=== PATIENT | male | born 1980 ===

== ENCOUNTER 2020-08-28 16:02 | Emergency (ER) | payer MEDICAID ==
[2020-08-28 17:12] VITALS: BP 151/104
--- NOTE | 2020-08-28 17:12 | Emergency Department Report ---
ED Fall HPI - General Chief Complaint: Extremity Injury, Lower Stated Complaint: R FOOT INJURY Source: patient Mode of arrival: Ambulatory - History of Present Illness Initial Comments: Patient is a 40-year-old male with no past medical history presents to the ED with complaint of acute onset persistent severe right ankle pain and bilateral hand pain after he slipped and fell down about 2 months ago. Patient states the pain has been persistent and constant and especially worse with any active range of motion or movement. Patient states that in the last 1 week, the pain is worsened especially when he tries to bear weight of the right ankle. Patient denies head or neck injuries, loss of consciousness, nausea, vomiting, back pain, knee pain, hip pain, chest pain or shortness of breath discharge or change in vision, numbness and tingling or weakness of upper and lower extremities bilaterally. MD Complaint: fall, other (Bilateral hand and right ankle pain) -: Sudden, month(s) (2) Fall From: standing, other (While playing basketball) When Fall Occurred: other (2 months ago) Fall Witnessed: yes, by family Place Fall Occurred: street Loss of Consciousness: none Prolonged Down Time?: no Symptoms Prior to Fall: none Location: other (Bilateral hand pain; right ankle pain) Location - Extremities: Left: Hand (Bilateral hand pain), Right: Hand, Ankle (Right ankle pain) Severity: severe Severity scale (0 -10): 7 Quality: sharp, aching Context: tripped/slipped Associated Symptoms: denies. denies: headache, neck pain, numbness, weakness, chest paint, shortness of breath, abdominal pain, hematuria, unable to walk, lightheaded, vertigo, confusion, other - Related Data Previous Rx's Medication Instructions Recorded Last Taken Type Baclofen 20 mg PO Q8H PRN #15 tablet 08/28/20 Unknown Rx Ibuprofen [Motrin] 800 mg PO Q8HR PRN #30 tablet 08/28/20 Unknown Rx Allergies Allergy/AdvReac Type Severity Reaction Status Date / Time No Known Allergies Allergy Unverified 08/28/20 17:09 ED Review of Systems ROS: Stated complaint: R FOOT INJURY Other details as noted in HPI Constitutional: denies: chills, fever Eyes: denies: eye pain, eye discharge, vision change ENT: denies: ear pain, throat pain Respiratory: denies: cough, shortness of breath, wheezing Cardiovascular: denies: chest pain, palpitations Endocrine: no symptoms reported Gastrointestinal: denies: abdominal pain, nausea, diarrhea Genitourinary: denies: urgency, dysuria Musculoskeletal: arthralgia (Bilateral hand pain; severe right ankle pain), myalgia. denies: back pain, joint swelling Skin: denies: rash, lesions Neurological: denies: headache, weakness, paresthesias Psychiatric: denies: anxiety, depression Hematological/Lymphatic: denies: easy bleeding, easy bruising ED Past Medical Hx - Medications Home Medications: Home Medications Medication Instructions Recorded Confirmed Last Taken Type Baclofen 20 mg PO Q8H PRN #15 tablet 08/28/20 Unknown Rx Ibuprofen [Motrin] 800 mg PO Q8HR PRN #30 tablet 08/28/20 Unknown Rx ED Physical Exam - General Limitations: Language Barrier General appearance: alert, in no apparent distress - Head Head exam: Present: atraumatic, normocephalic, normal inspection - Eye Eye exam: Present: normal appearance, PERRL, EOMI Pupils: Present: normal accommodation - ENT ENT exam: Present: normal exam, normal orophraynx, mucous membranes moist, TM's normal bilaterally, normal external ear exam - Neck Neck exam: Present: normal inspection, full ROM. Absent: tenderness - Respiratory Respiratory exam: Present: normal lung sounds bilaterally. Absent: respiratory distress, wheezes, rales, rhonchi, stridor, chest wall tenderness, accessory muscle use, decreased breath sounds, prolonged expiratory - Cardiovascular Cardiovascular Exam: Present: regular rate, normal rhythm, normal heart sounds. Absent: systolic murmur, diastolic murmur, rubs, gallop - GI/Abdominal GI/Abdominal exam: Present: soft, normal bowel sounds. Absent: tenderness, guarding, rebound, hyperactive bowel sounds - Extremities Exam Extremities exam: Present: normal inspection, full ROM, tenderness (Palpable severe right ankle tenderness with limited range of motion due to pain), normal capillary refill, other (Palpable bilateral hand pain). Absent: pedal edema, joint swelling, calf tenderness - Back Exam Back exam: Present: normal inspection, full ROM. Absent: tenderness, CVA tenderness (R), CVA tenderness (L), muscle spasm, paraspinal tenderness, vertebral tenderness - Neurological Exam Neurological exam: Present: alert, oriented X3, CN II-XII intact, normal gait, reflexes normal - Psychiatric Psychiatric exam: Present: normal affect, normal mood - Skin Skin exam: Present: warm, dry, intact, normal color. Absent: rash ED Course Vital Signs 08/28/20 17:10 Temperature 98 F Pulse Rate 71 Respiratory 18 Rate Blood Pressure 151/104 [Right] O2 Sat by Pulse 100 Oximetry ED Medical Decision Making - Radiology Data Radiology results: report reviewed, image reviewed [address] [address] XRay Report Signed Patient: ET TELLEZ MR#: [id number] : 1980 Acct:[id number] Age/Sex: 40 / M ADM Date: 08/28/20 Loc: ED Attending Dr: Ordering Physician: ESTELA KARIMI Date of Service: 08/28/20 Procedure(s): XR ankle 3+V RT Accession Number(s): [id number] cc: ESTELA KARIMI Fluoro Time In Minutes: RIGHT ANKLE 3 VIEWS INDICATION / CLINICAL INFORMATION: Fall - pain. COMPARISON: None available. FINDINGS: Old healed distal fibular fracture. No other significant skeletal abnormality Signer Name: Brenton Henderson MD FACR Signed: 08/28/2020 5:31 PM Workstation Name: [id number] Transcribed By: MS Dictated By: Brenton Henderson MD Electronically Authenticated By: Brenton Henderson MD Signed Date/Time: 08/28/201730 DD/ 30 TD/TT: [address] [address] XRay Report Signed Patient: TE TELLEZ MR#: [id number] : 1980 Acct:[id number] Age/Sex: 40 / M ADM Date: 08/28/20 Loc: ED Attending Dr: Ordering Physician: ESTELA KARIMI Date of Service: 08/28/20 Procedure(s): XR hand BILAT 2V Accession Number(s): [id number] cc: ESTELA KARIMI Fluoro Time In Minutes: BILATERAL HANDS 4 VIEWS INDICATION / CLINICAL INFORMATION: Pain- Fall. COMPARISON: None available. FINDINGS: No significant skeletal abnormality Signer Name: Brenton Henderson MD FACR Signed: 08/28/2020 5:34 PM Workstation Name: [id number] [id number] Transcribed By: MS Dictated By: Brenton Henderson MD Electronically Authenticated By: Brenton Henderson MD Signed Date/Time: 08/28/201733 DD/ 32 TD/TT: - Medical Decision Making This is a 40-year-old male with no past medical history presents to the ED with complaint of acute onset persistent severe right ankle pain and bilateral hand pain after he slipped and fell down about 2 months ago. Patient states the pain has been persistent and constant and especially worse with any active range of motion or movement. Patient states that in the last 1 week, the pain is worsened especially when he tries to bear weight of the right ankle. In the ED, patient is alert and oriented x3 and is not in any distress. The right ankle x-ray showed no acute fractures or subluxation but an old healed distal right fibula fracture. The bilateral hand x-rays showed no acute fractures or subluxations. Patient was therefore discharged home on pain medications and muscle relaxants and advised to follow-up with his primary care physician in 5 to 7 days for reevaluation. Patient was advised return to the ED immediately if symptoms get worse. - Differential Diagnosis Ankle fracture; Ankle sprain; Hand sprain; hand contusion Critical care attestation.: If time is entered above; I have spent that time in minutes in the direct care of this critically ill patient, excluding procedure time. ED Disposition Clinical Impression: Severe sprain of right ankle Qualifiers: Encounter type: initial encounter Qualified Code(s): S93.401A - Sprain of unspecified ligament of right ankle, initial encounter Sprain of hand Qualifiers: Encounter type: initial encounter Laterality: unspecified laterality Qualified Code(s): S63.90XA - Sprain of unspecified part of unspecified wrist and hand, initial encounter Disposition: TO HOME OR SELFCARE Is pt being admited?: No Does the pt Need Aspirin: No Condition: Stable Instructions: Ankle Sprain, [id number], Finger Sprain, Adult, [id number] Additional Instructions: La radiografa del tobillo derecho no mostr fracturas agudas ni subluxaciones, sino sushant amor fractura de peron distal que desde entonces kolb sanado. La radiografa bilateral de mano no mostr fracturas agudas ni subluxaciones. Por lo tanto, tome la medicacin con alimentos, joe muchos lquidos y paul un seguimiento con quinn mdico de atencin primaria en 5 a 7 ray para sushant reevaluacin. Regrese al servicio de urgencias de inmediato si los sntomas empeoran. Prescriptions: Baclofen 20 mg PO Q8H PRN #15 tablet PRN Reason: Muscle Spasm Ibuprofen [Motrin] 800 mg PO Q8HR PRN #30 tablet PRN Reason: Pain , Severe (7-10) Referrals: [facility] [Provider Group] - 3-5 Days Time of Disposition: 17:49 Print Language: NORWEGIAN
--- NOTE | 2020-08-28 17:36 | XRay Report ---
RIGHT ANKLE 3 VIEWS INDICATION / CLINICAL INFORMATION: Fall - pain. COMPARISON: None available. FINDINGS: Old healed distal fibular fracture. No other significant skeletal abnormality Signer Name: Brenton Henderson MD FACMaryjane Signed: 08/28/2020 5:31 PM Workstation Name: [id number]
--- NOTE | 2020-08-28 17:38 | XRay Report ---
BILATERAL HANDS 4 VIEWS INDICATION / CLINICAL INFORMATION: Pain- Fall. COMPARISON: None available. FINDINGS: No significant skeletal abnormality Signer Name: Brenton Henderson MD FACR Signed: 08/28/2020 5:34 PM Workstation Name: [id number]
== END 2020-08-28 18:22 | disposition home or self-care (01) ==
LOC: ED 16:02
DX: S93.401A Sprain of unspecified ligament of right ankle, initial encounter (principal); S63.90XA Sprain of unspecified part of unspecified wrist and hand, initial encounter; Z79.899 Other long term (current) drug therapy; W18.30XA Fall on same level, unspecified, initial encounter; Y92.410 Unspecified street and highway as the place of occurrence of the external cause; Y93.89 Activity, other specified; Y99.8 Other external cause status